=== PATIENT | male | born 1985 | race Two or more races ===

== ENCOUNTER 2021-08-22 19:38 | Emergency (ER) | payer MEDICAID ==
[~2021-08-22] VITALS: Ht 170.2 cm; Wt 68.0 kg
--- NOTE | 2021-08-22 20:30 | NUR ---
BIB FOR [facility] LIKE SYMPTOMS, H/A,. COUGH AND L POSTERIOR RIBS PAIN X 3-4 DAYS. 0N Z PACK
--- NOTE | 2021-08-22 20:45 | NUR ---
COVID SWAB COLLECTED AND SENT TO LAB RAD AT [facility]
--- NOTE | 2021-08-22 22:04 | NUR ---
Patient discharged to home in stable condition. Written and verbal after care instructions given. Patient verbalizes understanding of instruction.
[2021-08-22 22:05] VITALS: BP 129/84
== END 2021-08-22 22:06 | disposition home or self-care (01) ==
LOC: ER 19:45
DX: U07.1 COVID-19 (principal); R03.0 Elevated blood-pressure reading, without diagnosis of hypertension; E11.9 Type 2 diabetes mellitus without complications
CPT/HCPCS: 71045; 87426; 99284; C9803

== ENCOUNTER 2021-08-27 16:25 | Emergency (ER) | payer MEDICAID ==
[~2021-08-27] VITALS: Ht 170.2 cm; Wt 68.0 kg
[2021-08-27 16:34] VITALS: BP 124/74
--- NOTE | 2021-08-27 16:45 | NUR ---
BIBS for worsening cough, covid + a week ago. In room air and denies SOB. Respiration regular and unlabored. Will continue to monitor the patient.
[2021-08-27] MEDS ORDERED: AMOX-430 PO (17:51)
[2021-08-27] MEDS ORDERED: GUAI5LIQ10 PO (17:51)
[2021-08-27] MEDS ORDERED: AZIT250T13 PO (17:51)
--- NOTE | 2021-08-27 18:03 | NUR ---
Patient discharged to home in stable condition. Written and verbal after care instructions given. Patient verbalizes understanding of instruction.
== END 2021-08-27 18:04 | disposition home or self-care (01) ==
LOC: ER 16:28
DX: U07.1 COVID-19 (principal); J12.82 Pneumonia due to coronavirus disease 2019; E11.9 Type 2 diabetes mellitus without complications; F17.200 Nicotine dependence, unspecified, uncomplicated; Z88.8 Allergy status to other drugs, medicaments and biological substances
CPT/HCPCS: 71045-TC